=== PATIENT | male | born 1985 | race Caucasian/White ===

== ENCOUNTER 2017-02-20 15:06 | Emergency (ER) | payer OTHER, SELFPAY ==
[~2017-02-20] VITALS: Ht 182.9 cm; Wt 69.6 kg
[2017-02-20 15:20] VITALS: BP 119/73
[2017-02-20] MEDS ORDERED: CEFAZOLIN 1,000 MG ONE (15:55)
[2017-02-20] MEDS ORDERED: DEXAMETHASONE 4 MG TABLET ONE (15:56)
[2017-02-20] MEDS ORDERED: DEXAMETHASONE 4 MG TABLET PO ONE (16:00)
[2017-02-20] MEDS ORDERED: CEFAZOLIN 1,000 MG IM ONE (16:00)
== END 2017-02-20 16:17 | disposition home or self-care (01) ==
LOC: ED 16:00
DX: J02.0 Streptococcal pharyngitis (principal)
CPT/HCPCS: 96372; 99283; J0690